=== PATIENT | female | born 1940 | race Two or more races ===

== ENCOUNTER 2017-07-26 12:30 | Inpatient (IN) | payer OTHER ==
[~2017-07-26] VITALS: Ht 154.9 cm; Wt 59.0 kg
[~2017-07-26 12:30] MED LIST: ATENOLOL25 MG; CIPRO500 MG PO; LEVSIN/SL0.125 MG PO; PEPCID40 MG PO
== END 2017-07-31 17:44 | disposition home or self-care (01) | DRG 330 ==
LOC: SURH 07-29 06:12 → O/R 07-29 06:12 → SURH 07-29 12:15
PROVIDERS: Colon & Rectal Surgery
PROC: 0DJD8ZZ Inspection of Lower Intestinal Tract, Via Natural or Artificial Opening Endoscopic (ICD-10-PCS; 2017-07-29)
PROC: 0DTE4ZZ Resection of Large Intestine, Percutaneous Endoscopic Approach (ICD-10-PCS; principal; 2017-07-29 12:15)
DX: K57.20 Diverticulitis of large intestine with perforation and abscess without bleeding (principal)

== ENCOUNTER 2021-04-01 06:58 | Day surgery (SDC) | payer OTHER | END 2021-04-01 13:42 | disposition home or self-care (01) | LOC: AMB-ENDOS 06:58 | PROVIDERS: ATTEND Colon & Rectal Surgery | DX: D12.2 Benign neoplasm of ascending colon (principal); D12.3 Benign neoplasm of transverse colon; D12.4 Benign neoplasm of descending colon; K64.8 Other hemorrhoids; Z12.11 Encounter for screening for malignant neoplasm of colon ==